=== PATIENT | male | born 1950 | race Caucasian/White ===

== ENCOUNTER → 2016-07-10 | Outpatient (CLI) | payer BC ==
--- NOTE | 2016-07-10 09:54 | RAD ---
EXAM: Chest, 2 views. HISTORY: Productive cough. COMPARISON: 05/31/2012. FINDINGS: Frontal and lateral views of the chest are obtained. There is no infiltrate, effusion or pneumothorax. The heart is normal in size. IMPRESSION: No acute pulmonary finding.
== END | disposition home or self-care (01) ==
LOC: DXRADRC 09:44
PROVIDERS: ATTEND Family Medicine
DX: R05 Cough (principal); Z87.09 Personal history of other diseases of the respiratory system
CPT/HCPCS: 71020

== ENCOUNTER → 2019-09-04 | Outpatient (CLI) | payer MEDICARE, BC ==
--- NOTE | 2019-09-04 13:43 | RAD ---
2 view bilateral knees HISTORY: Pain Limited 2 view Lateral and sunrise bilateral views the knees were obtained There is moderate effusions left worse than right. There is mild degenerative marginal spurring bilaterally. There is no lytic destructive changes. On the right there is evidence of prior ACL repair. IMPRESSION: Bilateral knee effusions. Clinical correlation is suggested. Electronically signed by: Carmelo Tatum III, MD (09/04/2019 1:40 PM) [id number]
--- NOTE | 2019-09-04 13:49 | RAD ---
EXAM: KNEE STANDING BILAT AP 09/04/2019 1:27 PM CLINICAL INDICATION:Knee pain COMPARISON:None TECHNIQUE:Standing AP view of the bilateral knees. FINDINGS: Right knee: No acute fracture. There are surgical changes of right ACL reconstruction. No acute fracture. Moderate medial and mild to moderate lateral compartment narrowing with small osteophytes. Slight genu varum. Soft tissue is normal. Left knee: There is moderate medial and mild lateral compartment narrowing. Tiny medial medial and lateral compartment osteophytes. Slight genu varum. Soft tissue is normal. IMPRESSION:Moderate osteoarthrosis of the knees, greater on the right. Electronically signed by: Jocy Park MD (09/04/2019 1:46 PM) [id number]
== END | disposition home or self-care (01) ==
LOC: DXRAD 12:07
PROVIDERS: ATTEND Orthopaedic Surgery
DX: M17.0 Bilateral primary osteoarthritis of knee (principal); M21.162 Varus deformity, not elsewhere classified, left knee; M21.161 Varus deformity, not elsewhere classified, right knee; M25.762 Osteophyte, left knee; M25.761 Osteophyte, right knee; M25.862 Other specified joint disorders, left knee; M25.462 Effusion, left knee; M25.461 Effusion, right knee; M25.861 Other specified joint disorders, right knee
CPT/HCPCS: 73560; 73565

== ENCOUNTER 2020-03-16 16:46 | Emergency (ER) | payer MEDICARE, BC ==
[~2020-03-16] VITALS: Ht 175.3 cm; Wt 86.0 kg
[2020-03-16 16:59] VITALS: BP 176/94
[2020-03-16] MEDS ORDERED: HYDROcodone/APAP 5/325MG 1 TAB TABLET PO ONE (17:45)
--- NOTE | 2020-03-16 18:17 | RAD ---
EXAM: Right knee, 3 views. HISTORY: Pain. Popping. COMPARISON: 09/04/2019 FINDINGS: 3 views of the right knee are obtained. There are postoperative changes due to anterior cruciate ligament repair. There is medial compartment joint space narrowing and trochlea bilateral spurring. No acute fracture, dislocation or subluxation is seen. There is a small joint effusion. IMPRESSION: 1. Findings consistent with right ACL repair. 2. Small right knee effusion. Electronically signed by: Lisa Villafuerte MD (03/16/2020 6:14 PM) [facility]
[2020-03-16] MEDS ORDERED: HYDR-2155 PO (18:31)
--- NOTE | 2020-03-16 18:31 | PHYS DOC ---
Past History Past Medical History: Arthritis, Other Additional Past Medical Histor: crohns disease Past Surgical History: Other Additional Past Surgical Histo: Knee scope, bowel resections X 2 Alcohol Use: Occasionally General Adult EDM: Chief Complaint: KNEE INJURY HPI: HPI: Patient is a 69-year-old male who presents to the emergency department with complaints of right knee pain. Patient states he was on his knees working on a piece of equipment when he twisted his knee and felt a pop. Patient reports that the injury happened at about 3 PM this afternoon. He states he is unable to bear weight on the knee since feeling a pop. He denies any numbness, tingling, decreased sensation. He currently rates pain 7 out of 10 on pain scale, he has not taken anything for relief of pain prior to arrival. Patient states he is able to ambulate using his crutches only. He reports a history of multiple surgeries on both of his knees and states that his orthopedic surgeon is Dr. Beaulieu Review of Systems: Review of Systems: Complete ROS is negative unless otherwise noted in HPI. Current Medications: Current Meds: Current Medications Medications (Trade) Dose Ordered Sig/Madonna Start Time Stop Time Status Last Admin Dose Admin Acetaminophen/ Hydrocodone Bitart (Lortab 5/325) 1 tab 1X ONCE 03/16/20 17:45 03/16/20 17:49 DC 03/16/20 18:20 1 TAB Allergies: Allergies: Allergies Coded Allergies Type Severity Reaction Last Updated Verified azathioprine Allergy Severe 03/16/20 Yes Physical Exam: PE: See Above Constitutional: Well developed, well nourished, no acute distress, non-toxic appearance. [] HENT: Normocephalic, atraumatic, bilateral external ears normal, nose normal. [] Eyes: PERRLA, EOMI, conjunctiva normal, no discharge. [] Neck: Normal range of motion, no stridor. [] Cardiovascular:Heart rate regular rhythm Lungs & Thorax: Respirations even and unlabored, no retractions, no respiratory distress Skin: Warm, dry, no erythema, no rash. [] Extremities: Right knee: Diffuse tenderness to palpation, negative anterior drawer testing, unable to test posterior drawer or stress test due to patient intolerance. No cyanosis Neurologic: Alert and oriented X 3, no focal deficits noted. [] Psychologic: Affect normal, judgement normal, mood normal. [] Current Patient Data: Vital Signs: Vital Signs Date Time Temp Pulse Resp B/P (MAP) Pulse Ox O2 Delivery O2 Flow Rate FiO2 03/16/20 18:20 18 97 03/16/20 16:59 98.0 60 176/94 (121) Room Air EKG: EKG: [] Radiology/Procedures: Radiology/Procedures: PROCEDURE: KNEE RIGHT 3V EXAM: Right knee, 3 views. HISTORY: Pain. Popping. COMPARISON: 09/04/2019 FINDINGS: 3 views of the right knee are obtained. There are postoperative changes due to anterior cruciate ligament repair. There is medial compartment joint space narrowing and trochlea bilateral spurring. No acute fracture, dislocation or subluxation is seen. There is a small joint effusion. IMPRESSION: 1. Findings consistent with right ACL repair. 2. Small right knee effusion. [] Heart Score: Risk Factors: Risk Factors: DM, Current or recent (<one month) smoker, HTN, HLP, family history of CAD, obesity. Risk Scores: Score 0 - 3: 2.5% MACE over next 6 weeks - Discharge Home Score 4 - 6: 20.3% MACE over next 6 weeks - Admit for Clinical Observation Score 7 - 10: 72.7% MACE over next 6 weeks - Early Invasive Strategies Course & Med Decision Making: Course & Med Decision Making Pertinent Labs and Imaging studies reviewed. (See chart for details) [] Dragon Disclaimer: Dragon Disclaimer: This electronic medical record was generated, in whole or in part, using a voice recognition dictation system. Departure Departure: Impression: Primary Impression: Knee pain, right Qualified Codes: M25.561 - Pain in right knee Additional Impression: Effusion of right knee Disposition: 01 DC HOME SELF CARE/HOMELESS Condition: STABLE Referrals: JUNA BEAULIEU MD Patient Instructions: Knee Effusion, [id number] Additional Instructions: Fill prescription(s) and use as directed. Recommend application of ice, elevation, and rest of affected extremity. Wear the knee immobilizer that was placed until follow-up with Dr Beaulieu. Return to the ER if your symptoms worsen. Scripts Hydrocodone Bit/Acetaminophen (HYDROCODONE-APAP 5-325 ) 1 Each Tablet 0.5-1 TAB PO PRN Q6HRS PRN for PAIN for 3 Days, #12 TAB 0 Refills Prov: IVONNE JOLLY TILE FINISHER 03/16/20 Splinting Splinting : Location: R knee Pre-Made Type: knee immobilizer Pre-Proc Neuro Vasc Exam: normal Post-Proc Neuro Vasc Exam: normal, unchanged from pre-exam IVONNE JOLLY APRN Mar 16, 2020 18:31
== END 2020-03-16 18:40 | disposition home or self-care (01) ==
LOC: ER 16:46
DX: M25.561 Pain in right knee (principal); M25.461 Effusion, right knee; M19.90 Unspecified osteoarthritis, unspecified site; Z88.8 Allergy status to other drugs, medicaments and biological substances; X50.9XXA Other and unspecified overexertion or strenuous movements or postures, initial encounter; Y93.89 Activity, other specified; Y92.89 Other specified places as the place of occurrence of the external cause; Y99.8 Other external cause status
CPT/HCPCS: 29505; 73562; 99283

== ENCOUNTER → 2020-08-19 | Outpatient (CLI) | payer MEDICARE ==
[~2020-08-19] MED LIST: HYDR-2155 PO
--- NOTE | 2020-08-20 11:42 | RAD ---
XR HAND 3 VIEWS Clinical Indication: Reason: CHRONIC HAND PAIN / Spl. Instructions: / History: Comparison: None. Findings: Right: Mild dorsal soft tissue swelling overlying the metacarpal heads. There is MCP joint space narrowing m ost apparent of the third digit. There are hooked lateral osteophytes of the metacarpal heads, most a pparent second and third. Interphalangeal joint spaces demonstrate less apparent narrowing. No bone e rosion is identified. The mineralization is probably normal. Left: Metacarpal joint space narrowing, most apparent of the third digit. There are hooked lateral osteophy raghavendra of the metacarpal heads, most apparent of the third digit. Mild dorsal soft tissue swelling overl carlitos the metacarpal heads. There is no acute fracture. No bone erosion is seen. IMPRESSION: 1. No acute fracture. 2. There is predominantly MCP joint space narrowing. There are hooked lateral osteophytes of the met acarpal heads. Mild dorsal soft tissue swelling of the metacarpal heads. Some considerations include CPPD or hemachromatosis. Electronically signed by: Nasir Lenz MD (08/20/2020 11:40 AM) [id number]
== END ==
LOC: RAD 14:51
PROVIDERS: ATTEND Orthopaedic Surgery
DX: M25.742 Osteophyte, left hand (principal); M25.741 Osteophyte, right hand
CPT/HCPCS: 73130